=== PATIENT | male | born 1985 | race Caucasian/White ===

== ENCOUNTER 2023-11-16 15:33 | Emergency (ER) | payer SELFPAY ==
[~2023-11-16] VITALS: Ht 182.9 cm; Wt 81.6 kg
[2023-11-16 15:36] VITALS: BP_SYST 123; PULSE 85; RESP 18; TEMP 98.5; O2SAT 96
[2023-11-16 15:54] VITALS: BP_SYST 123; PULSE 85; RESP 18; TEMP 98.5; O2SAT 96
== END 2023-11-16 15:55 ==
LOC: SED 15:33
DX: S00.31XA Abrasion of nose, initial encounter (principal); S60.812A Abrasion of left wrist, initial encounter; S60.811A Abrasion of right wrist, initial encounter; Y04.0XXA Assault by unarmed brawl or fight, initial encounter; Y93.89 Activity, other specified; Y92.89 Other specified places as the place of occurrence of the external cause; Y99.8 Other external cause status
CPT/HCPCS: 99283